=== PATIENT | female | born 1985 | race Caucasian/White ===

== ENCOUNTER 2023-07-04 09:35 | Inpatient (IN) | payer BC ==
[~2023-07-04 09:35] MED LIST: Bicitra 30 ML UDCUP PO PRN; Carboprost 250 MCG/ML AMP IM PRN; Diphenoxylate HCl/Atropine Tablet PO PRN; Famotidine/PF 20 mg/2ml Vial SLOW IVP PRN; Lactated Ringer's 1,000 ML IV SCH; Misoprostol 200 MCG TAB PR PRN; NS w/ Oxytocin 30 units 500 ML IV SCH; Ondansetron PF 4 MG/2 ML Vial IVP PRN; Promethazine HCl 25 MG/ML VIAL IM PRN; Tranexamic Acid 1,000 MG/10 ML VIAL IVP PRN; hydrALAZINE 20 MG/ML VIAL SLOW IVP PRN
[2023-07-04] MEDS ORDERED: CEFAZOLIN 3 GM, Admixture Fee 1 EACH in Sodium Chloride 0.9% 100 ML IVPB SCH (09:45)
[2023-07-04 10:34] LABS: Hematocrit 37.1 % (34.9-44.5); Hemoglobin 12.1 g/dL (12.0-15.5); Mean Corpuscular HGB CONC 32.6 g/dL (32.0-36.0); Mean Corpuscular Hemoglobin 27.4 pg (27.0-33.0); Mean Corpuscular Volume 83.9 fl (81.6-98.3); Platelet Count 264 10x3/uL (150-450); RBC Distribution Width 14.2 % (11.5-14.5); Red Blood Cell (RBC) Count 4.42 10x6/uL (3.90-5.03); White Blood Cell (WBC) Count 7.4 10x3/uL (3.5-10.5)
[2023-07-04] MEDS ORDERED: Morphine PF 10 MG/10 ML VIAL ONE (10:41)
[2023-07-04] MEDS ORDERED: Ondansetron PF 4 MG/2 ML Vial ONE (10:42)
[2023-07-04] MEDS ORDERED: Oxytocin 10 UNITS/ML VIAL ONE (10:42)
[2023-07-04] MEDS ORDERED: Dexamethasone 4 mg/ml Vial ONE (10:42)
[2023-07-04] MEDS ORDERED: fentaNYL 50 mcg/mL 1 mL Vial ONE (10:42)
[2023-07-04] MEDS ORDERED: Naloxone HCl 0.4 mg/ml Vial IV PRN (10:47)
[2023-07-04] MEDS ORDERED: Fentanyl 100 MCG/2 ML VIAL SLOW IVP PRN (10:47)
[2023-07-04] MEDS ORDERED: Naloxone HCl 0.4 mg/ml Vial IVP PRN ×2 (10:47)
[2023-07-04] MEDS ORDERED: HYDROmorphone 2 MG/ML VIAL SLOW IVP PRN (10:47)
[2023-07-04] MEDS ORDERED: Ondansetron PF 4 MG/2 ML Vial IVP PRN ×2 (10:47→14:58)
[2023-07-04] MEDS ORDERED: Meperidine HCl/PF 25 MG/ML VIAL SLOW IVP PRN (10:47)
[2023-07-04] MEDS ORDERED: diphenhydrAMINE 50 MG/ML VIAL IVP PRN (10:47)
[2023-07-04] MEDS ORDERED: Moisturizing Cream (Eucerin) 113 GM JAR TOP PRN (10:47)
[2023-07-04] MEDS ORDERED: Promethazine HCl 25 MG/ML VIAL IM PRN ×2 (10:47→14:58)
[2023-07-04] MEDS ORDERED: Ondansetron HCl/PF 4 MG/2 ML Vial IVP PRN (10:47)
[2023-07-04] MEDS ORDERED: Promethazine HCl 25 MG SUPP PR PRN (10:47)
[2023-07-04] MEDS ORDERED: Communication Order-Pharmacy FS SCH (11:00)
[2023-07-04] MEDS ORDERED: Ketorolac Tromethamine 30 MG/ML VIAL IVP SCH (11:00)
[2023-07-04 11:08] LABS: Syphilis Antibody Nonreactive (Nonreactive); Syphilis Antibody Index 0.04 S/CO (<1.00 Non-Reactive)
[2023-07-04 11:09] LABS: HBSAg Index 0.14 S/CO (0-0.99); HIV (1/2) Antibody/Antigen Non-Reactive (NonReactive); HIV 1/2 INDEX 0.06 S/CO (<1.00); Hep B Surf Ag - L&D Non-Reactive S/CO (NonReactive)
[2023-07-04 12:10] VITALS: BMI 51.9
[2023-07-04] MEDS ORDERED: Tranexamic Acid 1,000 MG/10 ML VIAL ONE (13:13)
[2023-07-04] MEDS ORDERED: Lanolin Ointment 7 GM TUBE TOP PRN (14:58)
[2023-07-04] MEDS ORDERED: Bisacodyl 10 MG SUPP PR PRN (14:58)
[2023-07-04] MEDS ORDERED: Boostrix 0.5 ML (Tdap) VIAL (>/=7 yrs of age) IM ONE (14:58)
[2023-07-04] MEDS ORDERED: Simethicone Chewable 80 MG TAB PO PRN (14:58)
[2023-07-04] MEDS ORDERED: Acetaminophen 325 MG TAB PO PRN (14:58)
[2023-07-04] MEDS ORDERED: hydrALAZINE 20 MG/ML VIAL SLOW IVP PRN (14:58)
[2023-07-04] MEDS ORDERED: NS w/ Oxytocin 30 units 500 ML ONE (15:26)
[2023-07-04] MEDS: Ketorolac Tromethamine 30 MG/ML VIAL IVP PRN ×2 (16:18→23:58)
[2023-07-04] MEDS: Docusate 100 MG CAP PO SCH (20:45)
[2023-07-04] MEDS: diphenhydrAMINE 25 MG CAP PO PRN ×2 (20:45→23:57)
[2023-07-04] MEDS: metFORMIN 500 MG TAB PO SCH (20:46)
[2023-07-04] MEDS ORDERED: Zolpidem Tartrate 5 MG TAB PO PRN (23:00)
[2023-07-05] MEDS: diphenhydrAMINE 25 MG CAP PO PRN ×2 (00:05→07:35)
[2023-07-05 04:05] LABS: Hematocrit 33.6 % (34.9-44.5); Hemoglobin 10.8 g/dL (12.0-15.5); Mean Corpuscular HGB CONC 32.1 g/dL (32.0-36.0); Mean Corpuscular Hemoglobin 27.4 pg (27.0-33.0); Mean Corpuscular Volume 85.3 fl (81.6-98.3); Mean Platelet Volume 10.9 fl (7.4-10.4); Platelet Count 254 10x3/uL (150-450); RBC Distribution Width 14.2 % (11.5-14.5); Red Blood Cell (RBC) Count 3.94 10x6/uL (3.90-5.03); White Blood Cell (WBC) Count 12.4 10x3/uL (3.5-10.5)
[2023-07-05] MEDS: HYDROcodone/Acetaminophen 5/325 mg Tablet PO PRN ×5 (05:14→23:05)
[2023-07-05] MEDS: Ferrous Sulfate 325 MG TAB PO SCH ×2 (07:11→23:08)
[2023-07-05] MEDS: Loratadine 10 MG TAB PO SCH (07:27)
[2023-07-05] MEDS: Prenatal Vitamin 1 TAB PO SCH (07:27)
[2023-07-05] MEDS: Ketorolac Tromethamine 30 MG/ML VIAL IVP PRN (07:27)
[2023-07-05] MEDS: metFORMIN 500 MG TAB PO SCH ×2 (07:28→20:45)
[2023-07-05] MEDS: NIFEdipine XL 90 MG TAB PO SCH (07:28)
[2023-07-05] MEDS: Docusate 100 MG CAP PO SCH ×2 (07:28→20:40)
[2023-07-05] MEDS: Levothyroxine Sodium 125 MCG TAB PO SCH (07:29)
[2023-07-05] MEDS: Ibuprofen 800 MG TAB PO SCH ×2 (14:08→20:40)
[2023-07-06] MEDS: Levothyroxine Sodium 125 MCG TAB PO SCH (05:58)
[2023-07-06] MEDS: Ibuprofen 800 MG TAB PO SCH ×2 (05:58→14:07)
[2023-07-06] MEDS: HYDROcodone/Acetaminophen 5/325 mg Tablet PO PRN ×2 (06:08→11:17)
[2023-07-06] MEDS: Ferrous Sulfate 325 MG TAB PO SCH (07:06)
[2023-07-06] MEDS: Docusate 100 MG CAP PO SCH (07:45)
[2023-07-06] MEDS: Prenatal Vitamin 1 TAB PO SCH (07:46)
[2023-07-06] MEDS: NIFEdipine XL 90 MG TAB PO SCH (07:46)
[2023-07-06] MEDS: Loratadine 10 MG TAB PO SCH (07:46)
[2023-07-06] MEDS: metFORMIN 500 MG TAB PO SCH (07:46)
[2023-07-06 11:30] VITALS: BP 131/78; TEMP 98
== END 2023-07-06 18:10 | disposition home or self-care (01) | DRG 787 ==
LOC: CSHLD 09:35 → CSHPP 16:00
PROVIDERS: ADMIT Student in an Organized Health Care Education/Training Program; ATTEND Student in an Organized Health Care Education/Training Program
PROC: 10D00Z1 Extraction of Products of Conception, Low, Open Approach (ICD-10-PCS; principal; 2023-07-04)
DX: O34.211 Maternal care for low transverse scar from previous cesarean delivery (principal); O10.92 Unspecified pre-existing hypertension complicating childbirth; O24.425 Gestational diabetes mellitus in childbirth, controlled by oral hypoglycemic drugs; Z3A.38 38 weeks gestation of pregnancy; Z37.0 Single live birth; E66.01 Morbid (severe) obesity due to excess calories; O99.214 Obesity complicating childbirth; E03.9 Hypothyroidism, unspecified; O99.284 Endocrine, nutritional and metabolic diseases complicating childbirth; E28.2 Polycystic ovarian syndrome; Z79.899 Other long term (current) drug therapy; Z79.890 Hormone replacement therapy; Z79.84 Long term (current) use of oral hypoglycemic drugs; Z79.82 Long term (current) use of aspirin; O99.824 Streptococcus B carrier state complicating childbirth
CPT/HCPCS: 36415; 51702; 85027; 86780; 86850; 86900; 86901; 87340; 87389; J1100; J1650; J1885; J2274; J2405; J2590; J3010